=== PATIENT | male | born 1960 | race Caucasian/White ===

== ENCOUNTER 2021-12-20 09:30 | Emergency (ER) | payer OTHER, SELFPAY ==
[2021-12-20 09:38] VITALS: BP 144/77; PULSE 87; RESP 14; TEMP 36.4; O2SAT 98
--- NOTE | 2021-12-20 10:37 | ED.GENADULT ---
HPI - General Adult General Chief complaint: Abdominal Pain Stated complaint: Stomach pains Time Seen by Provider: 12/20/21 10:37 Source: patient, RN notes reviewed and old records reviewed Mode of arrival: ambulatory Limitations: no limitations History of Present Illness HPI narrative: 61 year old male who presents to [facility] care with complaints of 1 week duration of right sided upper abdominal pain that wraps around to his back. Yesterday he noted this red angry rash all along the area which is painful and itchy. He also states that he has noted this odor to his urine for the past 2 week and he has increased his fluids of water and Gatorade but it continues to have odor, He denies any burning with his urination or and penile pain or drainage. He states no known fevers chills or sweats. He states that he also has been having some constipation and he took a bottle of cifuentes flavored liquid which made him have a stool, denies any diarrhea or vomiting. MD complaint: upper abdominal pain to his right back with red pustular rash, urine odor Severity scale (1-10): 5 Related Data Allergies Allergy/AdvReac Type Severity Reaction Status Date / Time No Known Allergies Allergy Verified 12/20/21 10:45 Review of Systems Review of Systems: CONSTITUTIONAL: Denies fever, chills, or sweats. EYES: Denies visual changes, redness, or discharge. ENT: Denies rhinorrhea, congestion, sore throat, or otalgia. CARDIOVASCULAR: Denies chest pain, palpitations, or edema. RESPIRATORY: Denies cough or dyspnea. GASTROINTESTINAL: right sided abdominal pain radiating to his back with red pustular rash, no nausea, vomiting, or diarrhea, some constipation GENITOURINARY: Denies dysuria or hematuria.urine odor for 2 weeks SKIN: Positive for red pustular rash from mid right abdomen to back on right side with pain and itching MUSCULOSKELETAL: Denies back pain, joint pain, or myalgia. NEUROLOGIC: Denies headache, numbness, or weakness. PSYCHIATRIC: Denies anxiety or depression. All systems reviewed & are unremarkable except as noted in HPI and below PMFSH Past Medical History Medical History (Updated 12/21/21 @ 22:41 by Faviola Wilcox NP) Family history of GERD Surgical History Surgical History (Updated 12/21/21 @ 22:32 by Faviola Wilcox NP) H/O knee surgery ligament surgery right knee H/O right wrist surgery pins and plates from injury History of cholecystectomy Social History Social History (Updated 12/21/21 @ 22:33 by Faviola Wilcox NP) Smoking status: Never smoker Alcohol intake: current Alcohol use details: social Substance use: never Living arrangements: with family Gender identity (if verbalized by the patient): Male Comments At time of signature, agree with nursing past medical, surgical, social and family history. There is no relevant family history pertinent to the presenting complaint Exam Narrative: GENERAL: Well-appearing, well-nourished, and in no acute distress. HEAD: Normocephalic, atraumatic. EYES: PERRLA and EOMI. ENT: Nares clear, no rhinorrhea or epistaxis. Mucous membranes moist.TM's normal with good light reflex, throat pink with no lesions or exudates.no tonsil swelling NECK: Supple.no lymphadenopathy CHEST: Clear to auscultation. No respiratory distress.SAO2 98% on room air HEART: Regular rate and rhythm. No murmur heard. Normal peripheral pulses. ABDOMEN: Soft, nontender to palpation, no McBurney point tenderness, nondistended, normal active bowel sounds.pain to upper right abdomen radiating to back with red pustular rash, no CVA tenderness on exam, foul urine odor denies any burning or pain with urination or any penial pain or drainage. EXTREMITIES: Normal range of motion. No edema. SKIN: Warm, dry, right upper abdomen pustular rash radiating to back with pain and itching NEURO: No focal deficits. Alert and oriented x3. Course Course Level of Care: Express Care Visit Vital Signs Vital signs: Vit
== END 2021-12-20 10:55 | disposition home or self-care (01) ==
PROVIDERS: Emergency Provider Registered Nurse; PCP Family Medicine
DX: N39.0 Urinary tract infection, site not specified (principal); B02.9 Zoster without complications; K59.00 Constipation, unspecified
CPT/HCPCS: 81003; 87077; 87086; 87186; 99213; G0463

== ENCOUNTER 2023-01-11 08:43 | Outpatient (CLI) | payer OTHER, SELFPAY ==
[2023-01-11 23:35] LABS: Alanine Aminotransferase 18 U/L (6-50); Albumin Level 4.2 g/dL (3.5-5.1); Alkaline Phosphatase 71 U/L (38-126); Anion Gap 3 mmol/L (8-16); Aspartate Amino Transferase 57 U/L (17-59); Bilirubin,Total 0.8 mg/dL (0.2-1.3); Blood Urea Nitrogen 20 mg/dL (9-20); Calcium 9.2 mg/dL (8.4-10.2); Carbon Dioxide 26 mmol/L (22-30); Chloride 105 mmol/L (98-107); Cholesterol 222 mg/dL (0-200); Estimated Glomerular Filt Rate > 60; Glucose 85 mg/dL (65-110); HDL Direct 39 mg/dL; Potassium 4.8 mmol/L (3.4-5.0); Sodium 134 mmol/L (137-145); Triglycerides 110 mg/dL (<150)
[2023-01-11 23:46] LABS: LDL Cholesterol Direct 148 mg/dL
[2023-01-12 12:31] LABS: Prostate Specific Antigen 2.6 ng/mL (< OR = 4.0)
== END 2023-01-11 08:44 | disposition home or self-care (01) ==
LOC: ANHBWCLAB 08:44
PROVIDERS: PCP Nurse Practitioner Adult Health; Visit Provider Nurse Practitioner Adult Health
DX: I10 Essential (primary) hypertension (principal); Z12.5 Encounter for screening for malignant neoplasm of prostate
CPT/HCPCS: 36415; 80053; 80061; 84153; G0103

== ENCOUNTER 2023-06-29 14:49 | Outpatient (CLI) | payer OTHER, SELFPAY ==
--- NOTE | ~2023-06-29 | CT_ITS ---
CT Scan of the Chest without Contrast: Clinical Indication: Lung cancer screening, personal history of nicotine dependence Technique: Contiguous sections were acquired throughout the chest without intravenous contrast. Dose reduction technique was used on this scan by utilizing automated exposure control and iterative recon struction technique. The dose-length product (DLP) was 131.92 mGy-cm. Findings: There is no evidence of any significant mediastinal, hilar or axillary lymphadenopathy. The mediastin al soft tissues appear normal. There is no evidence of pleural or pericardial effusion. The lungs are clear. No pulmonary nodules or infiltrates are noted. Images through the upper abdomen reveal small nonobstructing left renal stones. Impression: Lung RADS 1: Negative. 12 month follow-up screening CT advised. Reviewed, dictated and finalized at [facility]. ING COUNSELOR Impression: Lung RADS 1: Negative. 12 month follow-up screening CT advised.
== END 2023-06-29 14:50 | disposition home or self-care (01) ==
LOC: ANHIMG 14:53
PROVIDERS: PCP Nurse Practitioner Adult Health; Visit Provider Nurse Practitioner Adult Health
DX: Z12.2 Encounter for screening for malignant neoplasm of respiratory organs (principal); F17.200 Nicotine dependence, unspecified, uncomplicated
CPT/HCPCS: 71271

== ENCOUNTER 2025-01-28 09:26 | Outpatient (CLI) | payer OTHER, SELFPAY ==
--- OUTSIDE RECORDS SUMMARY | 2025-01-28 09:42 | XMS_ITS | Clinical Summary ---
Author Organization [facility] Address [address] [place] [id number] Care Team Providers Care Vehicle Assembly Inspector Name Role Phone Guzman Maldonado MD Primary Care Provider [phone] Allergies No known active allergies Medications HYDROcodone-duc taminophen (NORCO) 5-325 mg per tablet take 1 tablet by oral route every 6 hours as needed for pain 0 0 6 Active fluticasone (FLONASE) 50 mcg/actuation nasal spray inhale 1 spray by Intranasal route every 12 hours in each nostril 1 spray 0 7 Active aspirin (ASPIR-81) 81 mg tablet take 1 tablet by oral route every day 0 0 7 Active Active Problems Problem Noted Date Diagnosed Date Calculus of kidney 02/11/2016 Overview (09/02/2016): Kidney stone Tobacco dependence syndrome 02/11/2016 Overview (09/02/2016): Tobacco dependence Polyp of gallbladder 08/03/2012 Overview (08/31/2016): Gallbladder polyp Immunizations Immunization Administration Dates Next Due Influenza, Unspecified 08/04/2017(Deferred: Nichelle ent Refused) Tdap 01/23/2013 Surgical History Surgery Date Site/Laterality Comments KNEE SURGERY Rt Knee Surgery OTHER SURGICAL HISTORY repair fractured right wrist & right leg CHOLECYSTECTOMY Cholecystectomy OTHER SURGICAL HISTORY 01/27/2017 - 02/25/2017 kidney stone removal Medical History Medical History Date Comments Calculus of kidney Kidney Stones Hyperlipidemia Hyperlipidemia Hx Other Medical history kidney stones Hx Other Medical orif rt wrist/m va; Comments: JDR 02/03/2014 - Family History Medical History Relation Name Comments Coronary artery disease Father Alex ellington artery disease; Heart disease Father Heart Disease; Breast cancer Mother Cancer, breast ; Breast cancer Other Family history of Cancer -breast; Other Neg Hx No history of C ancer, colon; Relation Name Status Comments Father Mother Other Social History Tobacco Use Types Packs/Day Years Used Date Smoking Tobacco: Heavy Smoker Smokeless Tobacco: Never Tobacco Cessation:Ready to Q uit: Not Asked; Counseling Given: Not Answered Comments:Smoking History Packs/day: 1 Packs Alcohol Use Standard Drinks/Week Comments Not Currently 0 (1 standard drink = 0.6 oz pur e alcohol) Sex and Gender Information Value Date Recorded Sex Assigned at Not on file Legal Sex Male 2:20 PM BATTERY CHECKER Gender Identity Not on file Sexual Orientation Not on file Obstetrics History Last Filed Vital Signs Vital Sign Reading Time Taken Comments Blood Pressure 149/91 05/24/2022 7:30 PM BATTERY CHECKER Pulse 72 05/24/2022 7:30 PM BATTERY CHECKER Temperature 37.5 C (99.5 F) 05/24/2022 12:13 PM BATTERY CHECKER Respiratory Rate 15 05/24/2022 5:45 PM BATTERY CHECKER Oxygen Saturation 92% 05/24/2022 7:30 PM BATTERY CHECKER Inhaled Oxygen Concentration - - Weight 88.5 kg (195 lb) 05/24/2022 12:13 PM BATTERY CHECKER Height 177.8 cm (5' 10) 05/24/2022 12:13 PM BATTERY CHECKER Body Mass Index 27.98 05/24/2022 12:13 PM BATTERY CHECKER Plan of Treatment Health Maintenance Due Date Last Done Comments Colon Cancer Screening-Colonoscopy 1959 Hepatitis C Screening 1959 Prostate Cancer Screening-PSA 1959 Hepatitis B Screening 1977 Pneumococcal vaccine 65+ (1 of 2 - PCV) 1978 Zoster Vaccine (1 of 2) 2009 Depression Screening 08/04/2018 08/04/2017 Fall Risk Assessment 08/04/2018 08/04/2017 DTaP/Tdap/Td Vaccine (2 - Td or Tdap) 01/23/2023 Abdominal Aortic Aneurysm (AAA) Screen 2024, 01/16/2013 Well Visit 65+ 2024 Influenza Vaccine (#1) 2025 Procedures Procedure Name Priority Date/Time Associated Diagnosis Comments CT ABDOMEN PELVIS WO CONTRAST Routine 11/19/2016 1:10 PM CDT from Last 3 Months or Most Recently Relevant to Health Maintenance Results * CT Abdomen Pelvis WO Contrast (11/19/2016 1:10 PM CDT) Anatomical Region Laterality Modality Body N/A Computed Tomogra phy 11/19/2016 1:10 PM CDT Narrative 11/19/2016 1:[address] [place] [id number] Acc#: [id number] DATE OF EXAM: Nov [address] [place] [id number] HISTORY: Left flank pain.. Previous history of kidney stone. Prior cholecystectomy. TECHNIQUE: Noncontrast spiral axial scans from above kidneys to initial tuberosities. Coronal and sagittal reformatted images. COMPARISON: CT abdomen with contrast on 01/25/2014; CT IVP urogram on 01/14/2012. FINDINGS: A 14 x 14 x 10 mm calculus is present in the right renal pelvis with very mild right pelvicaliceal and very proximal ureteral dilatation extends beyond the calculus. 3 additional calculi are stacked in the distal right ureter. These measure 8, 6 and 3 mm diameter; not causing significant ureteral dilatation. These are located just above the right ureterovesical junction. No left urinary tract calcification or hydronephrosis/hydroureter is seen. No renal mass or cyst is identified. There is limited filling of urinary bladder wall with diffuse thickening of the wall and may be due to underdistention . Prostate gland is enlarged. Bilateral pelvic phleboliths and arteriosclerotic calcifications are seen. Gallbladder is surgically absent. Bile ducts are not dilated. Visualized portions of liver and spleen are normal. Pancreas and adrenal glands appear normal. Moderate amount of stool is distributed through colon. Appendix is normal. No dilated or thickened loops of colon or small bowel are seen. There is no lymphadenopathy or ascites. Advanced degenerative disc disease with narrowing, sclerosis, spurring and vacuum disc phenomenon at L5-S1 level is noted. IMPRESSION: 1. 14 mm calculus at right ureteropelvic junction; not causing significant obstruction. 2. Group of 3 calculi measuring 8, 6 and 3 mm in the right ureter just above the ureterovesical junction; also not causing significant obstruction. 3. No other urinary tract calcification, mass or cyst. 4. Diffuse wall thickening of nearly empty urinary bladder. 5. Prostatomegaly. 6. Arteriosclerosis. 7. Status post cholecystectomy. 8. Advanced degenerative disc disease at L5-S1. Electronically signed by: Keven Flores Jr., M.D. Interpreting Physician: DR KEVEN FLORES M.D. Read on: Nov 19 2016 1:02P Transcribed by: [facility] On: Nov 19 2016 1:00P Approved Electronically by: SAQIB Oneill, DR MORRISSEY on: Nov 19 2016 1:00P Ordering DR: DR ROLO NI Attending DR: ROLO NI Attending: ROLO NI Requesting: DR ROLO NI Requesting Attending Fax: -- Attending ID: [id number] Requesting ID: [id number] Report To 1 ID: [id number] Report To 1 Name: ROLO NI Report To 1 FAX: -- NextGen Order #: Procedure Note Miscellaneous, Not In File / Provider, MD Laz - 11/19/[address] [place] [id number] Acc#: [id number] DATE OF EXAM: Nov [address] [place] [id number] HISTORY: Left flank pain.. Previous history of kidney stone. Prior cholecystectomy. TECHNIQUE: Noncontrast spiral axial scans from above kidneys to initial tuberosities. Coronal and sagittal reformatted images. COMPARISON: CT abdomen with contrast on 01/25/2014; CT IVP urogram on 01/14/2012. FINDINGS: A 14 x 14 x 10 mm calculus is present in the right renal pelvis with very mild right pelvicaliceal and very proximal ureteral dilatation extends beyond the calculus. 3 additional calculi are stacked in the distal right ureter. These measure 8, 6 and 3 mm diameter; not causing significant ureteral dilatation. These are located just above the right ureterovesical junction. No left urinary tract calcification or hydronephrosis/hydroureter is seen. No renal mass or cyst is identified. There is limited filling of urinary bladder wall with diffuse thickening of the wall and may be due to underdistention . Prostate gland is enlarged. Bilateral pelvic phleboliths and arteriosclerotic calcifications are seen. Gallbladder is surgically absent. Bile ducts are not dilated. Visualized portions of liver and spleen are normal. Pancreas and adrenal glands appear normal. Moderate amount of stool is distributed through colon. Appendix is normal. No dilated or thickened loops of colon or small bowel are seen. There is no lymphadenopathy or ascites. Advanced degenerative disc disease with narrowing, sclerosis, spurring and vacuum disc phenomenon at L5-S1 level is noted. IMPRESSION: 1. 14 mm calculus at right ureteropelvic junction; not causing significant obstruction. 2. Group of 3 calculi measuring 8, 6 and 3 mm in the right ureter just above the ureterovesical junction; also not causing significant obstruction. 3. No other urinary tract calcification, mass or cyst. 4. Diffuse wall thickening of nearly empty urinary bladder. 5. Prostatomegaly. 6. Arteriosclerosis. 7. Status post cholecystectomy. 8. Advanced degenerative disc disease at L5-S1. Electronically signed by: Keven Flores Jr., M.D. Interpreting Physician: DR KEVEN FLORES M.D. Read on: Nov 19 2016 1:02P Transcribed by: [facility] On: Nov 19 2016 1:00P Approved Electronically by: SAQIB Oneill, DR MORRISSEY on: Nov 19 2016 1:00P Ordering DR: DR ROLO NI Attending DR: ROLO NI Attending: ROLO NI Requesting: DR ROLO NI Requesting Attending Fax: -- Attending ID: [id number] Requesting ID: [id number] Report To 1 ID: [id number] Report To 1 Name: ROLO NI Report To 1 FAX: -- NextGen Order #: us Not In File Miscellaneous IMG CT PROCEDURES Umu l Result from Last 3 Months or Most Recently Relevant to Health Maintenance Insurance [facility] Care Teams Vehicle Assembly Inspector Relationship Specialty Start Date End Date Guzman Maldonado MD PCP - General Family Practice 05/24/22
--- OUTSIDE RECORDS SUMMARY | 2025-01-28 09:42 | XMS_ITS | Clinical Summary ---
Author Organization [facility] Address [address] [place] [address] Care Team Providers Care Senior Grant Writer Name Role Phone Unavailable Primary Care Provider Unavailabl e Source Comments [facility],non-owned Affiliates and Associated Physician Practices is amultiple site organization consisting of ambulatory clinics and hospital sitesin [place], [place], [place] and [place]. This disclosure is being madepursuant to the Care Everywhere program and may not contain all information available regarding this patient. Last updated 18.[facility] Allergies No known active allergies Social History Tobacco Use Types Packs/Day Years Used Date Smoking Tobacco: Some Days Cigarettes Smokeless Tobacco: Never Tobacco Cessation:Ready to Q uit: Not Asked; Counseling Given: Not Answered Alcohol Use Standard Drinks/Week Comments Never 0 (1 standard drink = 0.6 oz pur e alcohol) AUDIT-C Answer Date Recorded Q1: How often do you have a drink containing alcohol? Never 05/24/2022 Q2: How many drinks containi ng alcohol do you have on a typical day when you are drinking? Patient does not drink Q3: How often do you have si x or more drinks on one occasion? Never 05/24/2022 Sex and Gender Information Value Date Recorded Sex Assigned at Not on file Legal Sex Male 2:51 PM BRAND ENGINEER Gender Identity Not on file Sexual Orientation Not on file Last Filed Vital Signs Vital Sign Reading Time Taken Comments Blood Pressure 171/88 05/24/2022 8:44 PM BRAND ENGINEER Pulse 81 05/24/2022 8:44 PM BRAND ENGINEER Temperature 36.3 C (97.4 F) 05/24/2022 8:44 PM BRAND ENGINEER Respiratory Rate 16 05/24/2022 8:44 PM BRAND ENGINEER Oxygen Saturation 97% 05/24/2022 8:44 PM BRAND ENGINEER Inhaled Oxygen Concentration - - Weight 88.5 kg (195 lb) 05/24/2022 8:44 PM BRAND ENGINEER Height 177.8 cm (5' 10) 05/24/2022 8:44 PM BRAND ENGINEER Body Mass Index 27.98 05/24/2022 8:44 PM BRAND ENGINEER Plan of Treatment Health Maintenance Due Date Last Done Comments COLOGUARD (AGES 45-75) - COL ON CA SCREENING 1959 COLON MONITORING 1959 COLONOSCOPY - COLON CA SCREENING 1959 CT COLONOGRAPHY - COLON CA SCREENING 1959 Colorectal Cancer Screening 1959 FIT - COLON CA SCREENING 1959 FLEX SIG - COLON CA SCREENING 1959 LIPID TESTING 1959 HIV SCREENING 1974 HEPATITIS C SCREENING 04/15/1977 DTAP/TDAP/TD VACCINES (1 - Tdap) 1978 PNEUMOCOCCAL VACCINE 50+ (1 of 2 - PCV) 1978 ZOSTER VACCINE (1 of 2) 2009 COVID-19 VACCINE (1 - 2023-2 5 season) 2024 AAA SCREENING 2024 DEPRESSION SCREENING 05/29/2024 INFLUENZA VACCINE (#1) 2025 Respiratory Syncytial Virus (RSV) Vaccine Pt: or over 60 yrs (1 - 1-dose 75+ series) 2034 HEPATITIS B VACCINE Aged Out No longe r eligible based on patient's age to complete this topic HIB VACCINE Aged Out No longer eligi ble based on patient's age to complete this topic HPV VACCINE Aged Out No longer eligi ble based on patient's age to complete this topic MENINGOCOCCAL (Group B) VACC INE SHARED DECISION-MAKING Aged Out No longer eligibl e based on patient's age to complete this topic MENINGOCOCCAL GROUPS A/C/Y/W VACCINE Aged Out No longer eligible b ased on patient's age to complete this topic Insurance [facility]
--- OUTSIDE RECORDS SUMMARY | 2025-01-28 09:42 | XMS_ITS | Encounter Summary ---
Author Organization [facility] Address [address] [place] [address] Care Team Providers Care Institute Scientist Name Role Phone Unavailable Primary Care Provider Unavailabl e Encounter Details Date Type Department Care Team (Late st Contact Info) Description 05/24/2022 Ophth Exam [facility] [address] [place] [address] Emili Mcdermott DO [address] [place] [address] Social History Tobacco Use Types Packs/Day Years Used Date Smoking Tobacco: Some Days Cigarettes Smokeless Tobacco: Never Alcohol Use Standard Drinks/Week Comments Never 0 [...] on file Legal Sex Male 2:51 PM SLEEVE MAKER Gender Identity Not on file Sexual Orientation Not on file documented as of this encounter Functional Status * Question Answer Date of Assessment Author Q1: How often do you have a drink containing alcohol? Never 05/24/2022 9:02 PM Hayley Valera RN Q2: How many drinks containing alcohol do you have on a typical day when you are drinking? Patient does not drink 05/24/2022 9:02 PM Hayley Valera RN Q3: How often do you have six or more drinks on one occasion? Never 05/24/2022 9:02 PM Hayley Valera RN * Audit-C Score Answer Date of Assessment Author 0 05/24/2022 9:02 PM SLEEVE MAKER Hayley Carrero RN documented as of this encounter Plan of Treatment Not on file documented as of this encounter Visit Diagnoses Not on filedocumented in this encounter
[2025-01-28 18:23] LABS: Alanine Aminotransferase 18 U/L (6-50); Albumin Level 4.1 g/dL (3.5-5.1); Alkaline Phosphatase 72 U/L (38-126); Anion Gap 6 mmol/L (4-12); Aspartate Amino Transferase 90 U/L (17-59); Bilirubin,Total 0.6 mg/dL (0.2-1.3); Blood Urea Nitrogen 20 mg/dL (9-20); Calcium 9.2 mg/dL (8.4-10.2); Carbon Dioxide 25 mmol/L (22-30); Chloride 104 mmol/L (98-107); Cholesterol 216 mg/dL (0-200); Estimated Glomerular Filt Rate 60; Glucose 83 mg/dL (65-110); HDL Direct 41 mg/dL; Potassium 4.6 mmol/L (3.4-5.0); Sodium 135 mmol/L (137-145); Total Protein 6.7 g/dL (6.3-8.2); Triglycerides 87 mg/dL (<150)
[2025-01-28 18:30] LABS: Hematocrit 51.5 % (42.0-52.0); Hemoglobin 16.8 g/dL (14.0-18.0); Mean Corpuscular HGB Conc 32.6 g/dl (32-36); Mean Corpuscular Hemoglobin 29.9 pg (26-34); Mean Corpuscular Volume 91.6 fl (80-100); Platelet Count Result 316 k/mm3 (150-375); Red Blood Count 5.62 M/mm3 (4.6-6.20); White Blood Count 8.2 K/mm3 (4.5-10.0)
[2025-01-28 18:59] LABS: Prostate Specific Antigen 2.7 ng/mL (< OR = 4.0)
== END 2025-01-28 09:27 | disposition home or self-care (01) ==
LOC: ANHBWCLAB 09:28
PROVIDERS: PCP Nurse Practitioner Adult Health; Visit Provider Nurse Practitioner Adult Health
DX: Z00.00 Encounter for general adult medical examination without abnormal findings (principal); Z12.5 Encounter for screening for malignant neoplasm of prostate
CPT/HCPCS: 36415; 80053; 80061; 84153; 85027; G0103

== ENCOUNTER 2025-02-12 06:41 | Outpatient (CLI) | payer OTHER, SELFPAY ==
--- OUTSIDE RECORDS SUMMARY | 2025-02-12 06:44 | XMS_ITS | Encounter Summary ---
Author Organization [facility] Address [address] [place] [address] Care Team Providers Care Client Representative Name Role Phone Unavailable Primary Care Provider Unavailabl e Encounter Details Date Type Department Care Team (Late st Contact Info) Description 05/24/2022 Ophth Exam [facility] [address] [place] [address] Emili Mcdermott DO [address] [place] [address] Social History Tobacco Use Types [...] on file Legal Sex Male 2:51 PM SUGAR DRIER Gender Identity Not on file Sexual Orientation [...] on one occasion? Never 05/24/2022 9:02 PM aHyley Valera RN * Audit-C Score Answer Date of Assessment Author 0 05/24/2022 9:02 PM SUGAR DRIER Hayley Carrero RN documented as of this encounter Plan of Treatment Not on file documented as of this encounter Visit Diagnoses Not on filedocumented in this encounter
--- OUTSIDE RECORDS SUMMARY | 2025-02-12 06:44 | XMS_ITS | Clinical Summary ---
Author Organization [facility] Address [address] [place] [id number] Care Team Providers Care Wwe Wrestler Name Role Phone Guzman Maldonado MD Primary Care Provider [phone] Allergies No known active allergies Medications HYDROcodone-duc [...] on file Legal Sex Male 2:20 PM CONCRETE PUMP OPERATOR Gender Identity Not on file Sexual Orientation Not on file Obstetrics History Last Filed Vital Signs Vital Sign Reading Time Taken Comments Blood Pressure 149/91 05/24/2022 7:30 PM CONCRETE PUMP OPERATOR Pulse 72 05/24/2022 7:30 PM CONCRETE PUMP OPERATOR Temperature 37.5 C (99.5 F) 05/24/2022 12:13 PM CONCRETE PUMP OPERATOR Respiratory Rate 15 05/24/2022 5:45 PM CONCRETE PUMP OPERATOR Oxygen Saturation 92% 05/24/2022 7:30 PM CONCRETE PUMP OPERATOR Inhaled Oxygen Concentration - - Weight 88.5 kg (195 lb) 05/24/2022 12:13 PM CONCRETE PUMP OPERATOR Height 177.8 cm (5' 10) 05/24/2022 12:13 PM CONCRETE PUMP OPERATOR Body Mass Index 27.98 05/24/2022 12:13 PM CONCRETE PUMP OPERATOR Plan of Treatment Health Maintenance Due Date [...] 1:[address] [place] [id number] Acc#: [id number] DATE OF EXAM: Nov [address] [place] [address] HISTORY: Left flank pain.. Previous history of [...] on: Nov 19 2016 1:02P Transcribed by: [facility] On: Nov 19 2016 1:00P Approved Electronically by: SAQIB Oneill, DR MORRISSEY on: Nov 19 2016 1:00P Ordering DR: DR ROLO NI Attending DR: ROLO NI Attending: ROLO NI Requesting: DR ROLO NI Requesting Attending Fax: -- Attending ID: [id number] Requesting ID: [id number] Report To 1 ID: [id number] Report To 1 Name: ROLO NI Report To 1 FAX: -- NextGen Order #: Procedure Note Miscellaneous, Not In File / Provider, MD Laz - 11/19/[place] [id number] Acc#: [id number] DATE OF EXAM: Nov [address] [place] [address] HISTORY: Left flank pain.. Previous history of [...] on: Nov 19 2016 1:02P Transcribed by: [facility] On: Nov 19 2016 1:00P Approved Electronically by: SAQIB Oneill, DR MORRISSEY on: Nov 19 2016 1:00P Ordering DR: DR ROLO NI Attending DR: ROLO NI Attending: ROLO NI Requesting: DR ROLO NI Requesting Attending Fax: -- Attending ID: [id number] Requesting ID: [id number] Report To 1 ID: [id number] Report To 1 Name: ROLO NI Report To 1 FAX: -- NextGen Order #: us Not In File Miscellaneous IMG CT PROCEDURES Umu l Result from Last 3 Months or Most Recently Relevant to Health Maintenance Insurance [facility] Care Teams Wwe Wrestler Relationship Specialty Start Date End Date Guzman Maldonado MD PCP - General Family Practice 05/24/22
[2025-02-12 18:43] LABS: Alanine Aminotransferase 19 U/L (6-50); Albumin Level 4.3 g/dL (3.5-5.1); Alkaline Phosphatase 70 U/L (38-126); Aspartate Amino Transferase 84 U/L (17-59); Bilirubin,Total 0.9 mg/dL (0.2-1.3); Total Protein 6.9 g/dL (6.3-8.2)
== END 2025-02-12 06:42 | disposition home or self-care (01) ==
LOC: ANHBWCLAB 06:42
PROVIDERS: PCP Nurse Practitioner Adult Health; Visit Provider Nurse Practitioner Adult Health
DX: R74.8 Abnormal levels of other serum enzymes (principal)
CPT/HCPCS: 36415; 80076